=== PATIENT | female | born 1990 | race Two or more races ===

== ENCOUNTER 2021-04-26 01:18 | Emergency (ER) | payer MEDICAID ==
[~2021-04-26] VITALS: Ht 157.5 cm; Wt 63.5 kg
[~2021-04-26 01:18] MED LIST: METO10TA3; ONDA-144 PO; ONDANSETRON 4 MG; PREN-145 OR; PROMETHAZINE 25 MG; [UNRECOGNIZED DRUG - CODE]
[2021-04-26] MEDS ORDERED: KETOROLAC TROMETH 30 MG/ML 1ML VIAL IM ONE (02:00)
[2021-04-26] MEDS ORDERED: PANTOPRAZOLE 40 MG TAB PO ONE (02:15)
[2021-04-26 02:50] LABS: Urine Bacteria FEW /hpf (None Seen); Urine Blood TRACE /uL (Negative); Urine Specific Gravity 1.019 (1.001-1.035); Urine WBC 13 /hpf (0 - 5)
[2021-04-26] MEDS ORDERED: CEPH500T PO (02:57)
[2021-04-26] MEDS ORDERED: IBUP800T27 PO (02:57)
[2021-04-26 03:03] VITALS: BP 105/77
== END 2021-04-26 03:08 | disposition home or self-care (01) ==
LOC: ER 01:25
DX: F43.9 Reaction to severe stress, unspecified (principal); N39.0 Urinary tract infection, site not specified
CPT/HCPCS: 36415; 71045; 81001; 93005; 96372; 99285; J1885

== ENCOUNTER 2023-11-24 23:09 | Inpatient (IN) | payer MEDICAID ==
[~2023-11-24] VITALS: Ht 157.5 cm; Wt 72.3 kg
[~2023-11-24 23:09] MED LIST changes: +CEPH500T PO; +IBUP-1456 PO
[2023-11-25 02:31] LABS: Basophils # (auto) 0 10 ^3/uL (0-0.2); Basophils % (auto) 0.4 % (0.0-2.0); Eosinophils # (auto) 0 10 ^3/uL (0-0.8); Eosinophils % (auto) 0.4 % (0.0-7.0); Hematocrit 39.3 % (36.0-46.0); Hemoglobin 13.5 g/dL (12.2-16.2); Lymphocytes % (auto) 33.8 % (10.0-50.0); Mean Corpuscular Hemoglobin 32.2 pg (28.0-32.0); Mean Corpuscular Hgb Conc. 34.4 g/dL (32.0-36.0); Mean Corpuscular Volume 93.7 fL (80.0-100.0); Monocytes # (auto) 0.7 10 ^3/uL (0-1.3); Monocytes % (auto) 5.8 % (0.0-12.0); Neutrophils % (auto) 59.6 % (37.0-80.0); Platelet Count (auto) 285 10^3/uL (140-450); Red Blood Cells 4.19 10^6/uL (4.0-5.20); Red Cell Distribution Width 12.5 % (11.8-14.3); White Blood Cell 11.8 10^3/uL (4.4-10.8)
[2023-11-25 02:59] LABS: Chloride 104 mmol/L (98-107); Potassium 3.9 mmol/L (3.5-5.1); Sodium 135 mmol/L (136-145)
[2023-11-25 03:00] LABS: Anion Gap 5 (5-15); Calcium 9.9 mg/dL (8.7-10.4); Carbon Dioxide 26 mmol/L (20-30)
[2023-11-25 03:05] LABS: BUN/Creatinine Ratio 16.5 (10.0-20.0); Blood Urea Nitrogen 13 mg/dL (9-23); Glucose 110 mg/dL (74-106)
[2023-11-25 05:05] VITALS: PULSE 72; O2SAT 100
[2023-11-25 09:26] LABS: Urine Bacteria FEW /hpf (None Seen); Urine Blood 1+ /uL (Negative); Urine Clarity Clear (Clear); Urine Color Light-Yellow (Yellow); Urine Protein, UAD Negative (Negative); Urine Specific Gravity 1.015 (1.001-1.035); Urine Urobilinogen Normal (Negative); Urine WBC 14 /hpf (0 - 5)
[2023-11-25] MEDS ORDERED: MAALOX PLUS or MAALOX 30 ML PO PRN (14:30)
[2023-11-25] MEDS ORDERED: MORPHINE SULFATE INJ 2 MG/ml SYRG IV PRN (14:45)
[2023-11-25] MEDS ORDERED: NITROGLYCERIN 0.4 MG SL TAB SL PRN (14:45)
[2023-11-25 16:26] VITALS: BP 116/70; PULSE 70; RESP 14; TEMP 98.3; O2SAT 98
[2023-11-25 20:00] VITALS: PULSE 81; RESP 18; O2SAT 100
[2023-11-25 21:00] VITALS: BP 117/76; PULSE 81; RESP 18; TEMP 97.6; O2SAT 100
[2023-11-25] MEDS: LIDOCAINE VISCOUS 2% 15ML UD PO PRN (22:32)
[2023-11-26] VITALS (9 sets, daily range): BP systolic 97–120; BP diastolic 50–72; PULSE 64–85; RESP 13–20; TEMP 98–98.8; O2SAT 91–99
[2023-11-26 06:27] LABS: INR 1.05 (0.9-1.15); Partial Thromboplastin Time 25.9 SEC (24.5-34.5); Prothrombin Time 11.1 sec (9.3-11.8)
[2023-11-26] MEDS ORDERED: MORPHINE SULFATE INJ 2 MG/ml SYRG IV PRN (07:45)
[2023-11-26] MEDS ORDERED: ONDANSETRON HCL 4 MG/2 ML VIAL IV ONE (07:45)
[2023-11-26] MEDS ORDERED: METOCLOPRAMIDE HCL 5MG/ml INJ 2ml VIAL IV ONE (07:45)
[2023-11-26] MEDS ORDERED: LIDOCAINE 2% (LOCAL ANESTH.) PF 5ml SDV ONE (07:47)
[2023-11-26] MEDS ORDERED: PROPOFOL 10 MG/ML 20 ML IV ONE (07:47)
[2023-11-26] MEDS ORDERED: ONDANSETRON HCL 4 MG/2 ML VIAL ONE (07:47)
[2023-11-26] MEDS: PANTOPRAZOLE 40 MG TAB PO SCH (19:21)
[2023-11-26] MEDS: cefTRIAXone 1GM/50ML D5W 50 ML IV ONE (19:21)
[2023-11-26] MEDS: NYSTATIN (MOUTH-THROAT) 500,000 UNITS/5 ML SUSP MT SCH (21:24)
[2023-11-27] VITALS (7 sets, daily range): BP systolic 91–111; BP diastolic 47–71; PULSE 63–86; RESP 16–20; TEMP 97.7–99.1; O2SAT 96–98
[2023-11-27 07:02] LABS: Basophils # (auto) 0 10 ^3/uL (0-0.2); Basophils % (auto) 0.2 % (0.0-2.0); Eosinophils # (auto) 0 10 ^3/uL (0-0.8); Eosinophils % (auto) 0.5 % (0.0-7.0); Hematocrit 36.1 % (36.0-46.0); Hemoglobin 12.8 g/dL (12.2-16.2); Lymphocytes # (auto) 2.6 10 ^3/uL (0.4-5.4); Lymphocytes % (auto) 33.1 % (10.0-50.0); Mean Corpuscular Hemoglobin 32.8 pg (28.0-32.0); Mean Corpuscular Hgb Conc. 35.5 g/dL (32.0-36.0); Mean Corpuscular Volume 92.4 fL (80.0-100.0); Monocytes # (auto) 0.6 10 ^3/uL (0-1.3); Monocytes % (auto) 7.2 % (0.0-12.0); Neutrophils # (auto) 4.6 10 ^3/uL (1.6-8.6); Platelet Count (auto) 238 10^3/uL (140-450); Red Cell Distribution Width 12.5 % (11.8-14.3); White Blood Cell 7.8 10^3/uL (4.4-10.8)
[2023-11-27 07:28] LABS: Alanine Aminotransferase 20 U/L (7-40); Albumin 4.2 g/dL (3.2-4.8); Alkaline Phosphatase 76 U/L (46-116); Anion Gap 9 (5-15); Aspartate Aminotransferase 16 U/L (13-40); BUN/Creatinine Ratio 14.9 (10.0-20.0); Bilirubin, Total 0.6 mg/dL (0.2-1.0); Blood Urea Nitrogen 11 mg/dL (9-23); Calcium 9.2 mg/dL (8.7-10.4); Carbon Dioxide 22 mmol/L (20-30); Chloride 106 mmol/L (98-107); Glucose 111 mg/dL (74-106); Potassium 3.9 mmol/L (3.5-5.1); Sodium 137 mmol/L (136-145); Total Protein 6.5 g/dL (5.7-8.2)
[2023-11-27] MEDS: cefTRIAXone 1GM/50ML D5W 50 ML IV SCH (08:36)
[2023-11-27] MEDS ORDERED: NYS5LQ MT (13:59)
[2023-11-27] MEDS ORDERED: PANT40TA57 PO (13:59)
== END 2023-11-27 16:42 | disposition home or self-care (01) | DRG 254 ==
LOC: ER 23:09 → OVERFLOW 11-25 14:37 → WEST WING 11-25 16:44
PROVIDERS: ADMIT Internal Medicine; ATTEND Internal Medicine
PROC: 0DB68ZZ Excision of Stomach, Via Natural or Artificial Opening Endoscopic (ICD-10-PCS; 2023-11-26)
PROC: 0DB78ZX Excision of Stomach, Pylorus, Via Natural or Artificial Opening Endoscopic, Diagnostic (ICD-10-PCS; 2023-11-26)
PROC: 0DB58ZX Excision of Esophagus, Via Natural or Artificial Opening Endoscopic, Diagnostic (ICD-10-PCS; 2023-11-26)
PROC: 0D738ZZ Dilation of Lower Esophagus, Via Natural or Artificial Opening Endoscopic (ICD-10-PCS; principal; 2023-11-26 07:51)
DX: T18.128A Food in esophagus causing other injury, initial encounter (principal); K22.2 Esophageal obstruction; K20.90 Esophagitis, unspecified without bleeding; K44.9 Diaphragmatic hernia without obstruction or gangrene; R13.10 Dysphagia, unspecified; K29.70 Gastritis, unspecified, without bleeding; K31.7 Polyp of stomach and duodenum; Z82.49 Family history of ischemic heart disease and other diseases of the circulatory system; Z83.3 Family history of diabetes mellitus
CPT/HCPCS: 36415; 70360; 71045; 80048; 80053; 81001; 81025; 85025; 85610; 85730; 86850; 86900; 86901; G0378; J2001; J2405; J2704